=== PATIENT | female | born 1995 | race Caucasian/White ===

== ENCOUNTER 2021-04-10 05:41 | Inpatient (IN) | payer OTHER ==
[~2021-04-10] VITALS: Ht 160 cm; Wt 79.4 kg
[~2021-04-10 05:41] MED LIST: COLACE 100MG C100 MG PO
[2021-04-10 07:39] LABS: HEMOGLOBIN 12.8 gm/dl (12.3-15.3); RED BLOOD COUNT 4.59 M/UL (4.00-5.10); WHITE BLOOD COUNT 10.7 K/UL (4.5-11.0)
[2021-04-10] MEDS ORDERED: IBUPROFEN600 MG PO (12:14)
[2021-04-10] MEDS ORDERED: FEROSUL325 MG PO (12:14)
[2021-04-10] MEDS ORDERED: DOCUSATE SODIU250 MG PO (12:14)
[2021-04-11 06:38] LABS: HEMOGLOBIN 9.9 gm/dl (12.3-15.3)
== END 2021-04-11 15:14 | disposition home or self-care (01) | DRG 807 ==
LOC: GENOP 05:41 → OB 05:47
PROVIDERS: Obstetrics & Gynecology; ADMIT Obstetrics & Gynecology
PROC: 10E0XZZ Delivery of Products of Conception, External Approach (ICD-10-PCS; principal; 2021-04-10)
PROC: 10907ZC Drainage of Amniotic Fluid, Therapeutic from Products of Conception, Via Natural or Artificial Opening (ICD-10-PCS; 2021-04-10)
PROC: 4A1HXCZ Monitoring of Products of Conception, Cardiac Rate, External Approach (ICD-10-PCS; 2021-04-10)
DX: O80 Encounter for full-term uncomplicated delivery (principal); Z37.0 Single live birth; Z3A.39 39 weeks gestation of pregnancy; Z20.822 Contact with and (suspected) exposure to COVID-19
CPT/HCPCS: 36415; 51702; 81001; 82800; 85014; 85018; 85025; 90471; 90715; J0595; J2405; J2590; J7120; U0003

== ENCOUNTER → 2021-07-18 | Outpatient (CLI) | payer OTHER ==
[~2021-07-18] MED LIST changes: +DOCUSATE SODIU250 MG PO; +FEROSUL325 MG PO; +IBUPROFEN600 MG PO
== END ==
LOC: EROP 14:27
DX: Z20.822 Contact with and (suspected) exposure to COVID-19 (principal)
CPT/HCPCS: U0002

== ENCOUNTER → 2021-07-23 | Outpatient (CLI) | payer OTHER | LOC: LAB 20:18 | DX: U07.1 COVID-19 (principal) | CPT/HCPCS: U0002 ==

== ENCOUNTER → 2021-08-20 | Outpatient (CLI) | payer OTHER | LOC: LAB 23:11 | DX: U07.1 COVID-19 (principal) | CPT/HCPCS: U0002 ==

== ENCOUNTER → 2022-04-22 | Outpatient (CLI) | payer OTHER ==
[2022-04-22 06:49] LABS: HEMOGLOBIN 13.8 gm/dl (12.3-15.3); RED BLOOD COUNT 4.79 M/UL (4.00-5.10); WHITE BLOOD COUNT 11.5 K/UL (4.5-11.0)
[2022-04-23 09:10] LABS: VITAMIN D, 25-HYDROXY 27.8 ng/mL (30.0-100.0)
[2022-04-23 16:35] LABS: BUN/CREATININE RATIO 13 (0-10)
[2022-04-23 17:11] LABS: ANTISTREPTOLYSIN O AB 167.8 IU/mL (0.0-200.0); RHEUMATOID ARTHRITIS FACTOR <10.0 IU/mL (<14.0)
[2022-04-24 12:56] LABS: CHOLESTEROL, TOTAL 200 mg/dL (100-199); HDL CHOLESTEROL 36 mg/dL (>39); LDL CHOLESTEROL CALC 139 mg/dL (0-99); LDL/HDL RATIO 3.9 ratio (0.0-3.2); T. CHOL/HDL RATIO 5.6 ratio (0.0-4.4); TRIGLYCERIDES 136 mg/dL (0-149)
== END ==
LOC: LAB 05:59
PROVIDERS: Nurse Practitioner Family
DX: M25.50 Pain in unspecified joint (principal); R53.83 Other fatigue; E55.9 Vitamin D deficiency, unspecified; Z00.00 Encounter for general adult medical examination without abnormal findings
CPT/HCPCS: 80053; 80061; 81001; 82607; 84439; 84443; 84550; 85025; 85652; 86038; 86060; 86140; 86431; 87086